=== PATIENT | female | born 1950 | race Asian ===

== ENCOUNTER 2019-04-15 12:38 | Day surgery (SDC) | payer MEDICARE, OTHER, SELFPAY ==
[2019-04-15] VITALS (8 sets, daily range): BP systolic 90–125; BP diastolic 52–83; PULSE 49–75; RESP 1–20; TEMP 35.9–36.7; O2SAT 94–100; BMI 23.9
[2019-04-15] MEDS: SODIUM CHLORIDE 0.9% 1,000 ML 200 ML IV (13:12)
--- NOTE | 2019-04-15 13:35 | PM.HP.1 ---
History of Present Illness History of Present Illness Date Patient Seen: 04/15/19 Time Patient Seen: 13:36 Chief complaint: [id number] SCREENING COLONOSCOPY Narrative: 69-year-old white female patient here for screening colonoscopy is asymptomatic she has had prior colonoscopy with no polyps Patient History Family & Social History Social History: household members spouse Tobacco & Substance use: Smoking Status Never smoker Meds Home Medications and Allergies Home Medications Medication Instructions Recorded Confirmed Type No Known Home Medications 05/08/18 05/08/18 History Allergies Allergy/AdvReac Type Severity Reaction Status Date / Time No Known Allergies Allergy Uncoded 04/15/19 13:13 Review of Systems Review of Systems ROS Unobtainable: All systems reviewed & are unremarkable except as noted in HPI and below Exam Vital Signs (past 8 hours): - 04/15/19 12:51 Temperature 97.8 F Pulse Rate 75 Respiratory Rate 16 Blood Pressure 114/83 Pulse Oximetry 100 Oxygen Delivery Method Room Air Narrative Exam Narrative: Patient is alert and oriented Lungs are clear with no rales or wheezes Heart regular rhythm no murmur Abdomen soft nontender no organomegaly Rectal be done at time colonoscopy Assessment & Plan Assessment & Plan narrative: Asymptomatic patient here for a screening colonoscopy as had prior exams with no polyps she has no questions that went unanswered
[2019-04-15] MEDS: fentaNYL 250 MCG/5 ML INJ IV (14:10)
--- NOTE | 2019-04-15 14:10 | PM.OP.ENDO ---
Operative Date/Time/Diagnoses Date of procedure: 04/15/19 Time of procedure: 14:10 Pre-op diagnosis: Screening colonoscopy Post-op diagnosis: same Procedure & Clinicians Study performed: Total colonoscopy to the cecum Same procedure as scheduled: Yes Indications: Screening Surgeon: Roger Wan Procedure Notes SCOAP/Timeout: Done Procedure in detail: The patient was properly identified during surgical pause given a total of 4 mg of Versed and 200 micro g of fentanyl and remained comfortable throughout procedure. The flexible fiberoptic colonoscope was inserted transanally to the cecum no polyps no tumors no ulcerations no diverticuli were noted. Procedure was well tolerated Scope withdrawal time: 12 Sedation minutes: 26 Specimen(s): none sent Complications: none Post-procedure Recommendations: Colonscopy in 10 years Disposition: PACU
[2019-04-15] MEDS: MIDAZOLAM 5 MG/5 ML VIAL IV (14:11)
--- NOTE | 2019-04-15 14:20 | SUR.PHASEI ---
Dr. Selby notified pt passed multiple PACs but has resolved at this point.
--- NOTE | 2019-04-15 14:51 | SUR.PHASEI ---
Dr. Selby notified hr dropped to 30s, mostly between 40s and 50s. Will continue to monitor.
== END 2019-04-15 15:36 | disposition home or self-care (01) ==
PROVIDERS: Visit Provider Surgery
PROC: 0DJD8ZZ Inspection of Lower Intestinal Tract, Via Natural or Artificial Opening Endoscopic (ICD-10-PCS; CPT 45378; principal; 2019-04-15 13:45)
DX: Z12.11 Encounter for screening for malignant neoplasm of colon (principal)
CPT/HCPCS: G0121; 99152; J2250; J3010